=== PATIENT | male | born 1970 | race African-American/Black ===

== ENCOUNTER 2023-07-12 18:04 | Emergency (ER) | payer OTHER, MEDICAID ==
[~2023-07-12] VITALS: Ht 180.3 cm; Wt 81.6 kg
[2023-07-12] MEDS ORDERED: FILGRASTIM(TBO) 480 MCG/0.8 ML SYRG SC ONE (23:45)
[2023-07-13 00:11] VITALS: BP 170/101; PULSE 81; RESP 19; O2SAT 98
== END 2023-07-13 00:16 | disposition home or self-care (01) ==
LOC: ER 18:04
DX: D70.9 Neutropenia, unspecified (principal); I10 Essential (primary) hypertension
CPT/HCPCS: 96372; 99283; J1447